=== PATIENT | male | born 1955 | race Caucasian/White ===

== ENCOUNTER 2018-06-30 08:17 | Emergency (ER) | payer MEDICAID ==
[~2018-06-30] VITALS: Ht 182.9 cm; Wt 138.5 kg
[2018-06-30 09:23] LABS: BASOPHILS # (AUTO) 0.03 x10^3/uL (0-0.1); BASOPHILS % (AUTO) 1 % (0-1); EOSINOPHILS # (AUTO) 0.12 x10^3/uL (0-0.4); EOSINOPHILS % (AUTO) 2 % (1-7); LYMPHOCYTES # (AUTO) 1.06 x10^3/uL (1-3.4); LYMPHOCYTES % (AUTO) 18 % (22-44); MD NO; MEAN CORPUSCULAR HEMOGLOBIN 29.1 pg (27.5-34.5); MEAN CORPUSCULAR HGB CONC 33.1 g/dL (33.2-36.2); MEAN CORPUSCULAR VOLUME 87.9 fL (81-97); MEAN PLATELET VOLUME 8.5 fL (7.4-10.4); MONOCYTES # (AUTO) 0.28 x10^3/uL (0.2-0.8); MONOCYTES % (AUTO) 5 % (2-9); NEUTROPHILS # (AUTO) 4.32 x10^3/uL (1.8-6.8); NEUTROPHILS % (AUTO) 74 % (42-75); PLATELET COUNT 246 x10^3/uL (130-400); RED BLOOD COUNT 5.18 x10^6/uL (4.38-5.82); RED CELL DISTRIBUTION WIDTH 14.2 % (9.4-14.8)
[2018-06-30 09:35] LABS: ANION GAP 9 mmol/L (5-15); CALCIUM 8.4 mg/dL (8.5-10.1); CHLORIDE 111 mmol/L (98-107); CREATININE 1.11 mg/dL (0.7-1.3)
[2018-06-30 09:36] LABS: ALBUMIN 3.1 g/dL (3.4-5.0)
[2018-06-30 09:39] LABS: TROPONIN I < 0.015 ng/mL (0.000-0.045)
[2018-06-30] MEDS ORDERED: OMNIPAQUE 350 MG/ML, 150 ML BOTTLE ONE (11:48)
[2018-06-30 12:49] VITALS: BP 132/91
== END 2018-06-30 12:51 | disposition home or self-care (01) ==
LOC: ED 10:00
DX: R06.00 Dyspnea, unspecified (principal); F17.200 Nicotine dependence, unspecified, uncomplicated
CPT/HCPCS: 36415; 71046; 71275; 80048; 82040; 83880; 84484; 85025; 85379; 93005; 99284; Q9967

== ENCOUNTER 2018-07-27 12:02 | Emergency (ER) | payer MEDICAID ==
[~2018-07-27] VITALS: Ht 182.9 cm; Wt 139.8 kg
[2018-07-27 13:00] LABS: BASOPHILS # (AUTO) 0.04 x10^3/uL (0-0.1); BASOPHILS % (AUTO) 1 % (0-1); EOSINOPHILS % (AUTO) 4 % (1-7); LYMPHOCYTES # (AUTO) 1.52 x10^3/uL (1-3.4); LYMPHOCYTES % (AUTO) 28 % (22-44); MD NO; MEAN CORPUSCULAR HEMOGLOBIN 29.4 pg (27.5-34.5); MEAN CORPUSCULAR HGB CONC 33.5 g/dL (33.2-36.2); MEAN CORPUSCULAR VOLUME 87.6 fL (81-97); MEAN PLATELET VOLUME 8.6 fL (7.4-10.4); MONOCYTES # (AUTO) 0.33 x10^3/uL (0.2-0.8); MONOCYTES % (AUTO) 6 % (2-9); NEUTROPHILS # (AUTO) 3.36 x10^3/uL (1.8-6.8); NEUTROPHILS % (AUTO) 62 % (42-75); PLATELET COUNT 234 x10^3/uL (130-400); RED BLOOD COUNT 5.43 x10^6/uL (4.38-5.82); RED CELL DISTRIBUTION WIDTH 14.2 % (9.4-14.8)
[2018-07-27 13:11] LABS: ALANINE AMINOTRANSFERASE 31 U/L (12-78); ALBUMIN 3.3 g/dL (3.4-5.0); ANION GAP 6 mmol/L (5-15); CALCIUM 8.5 mg/dL (8.5-10.1); CHLORIDE 110 mmol/L (98-107); CREATININE 1.09 mg/dL (0.7-1.3)
[2018-07-27 13:16] LABS: ALKALINE PHOSPHATASE 105 U/L (45-117); BILIRUBIN,TOTAL 0.4 mg/dL (0.2-1.0); TOTAL PROTEIN 7.2 g/dL (6.4-8.2); TROPONIN I < 0.015 ng/mL (0.000-0.045)
--- NOTE | 2018-07-27 14:45 | NUR ---
DIRECTOR ORACLE: TO ROOM FROM LOBBY
[2018-07-27 14:51] VITALS: BP 153/97
--- NOTE | 2018-07-27 14:51 | NUR ---
pt upright on gurney awake & calm, responds approp to staff, NAD & able to converse comfortably, comfort measures provided, call light within reach. cardiac, NIBP & SpO2 monitors in place, pt changed into gown.
--- NOTE | 2018-07-27 14:55 | NUR ---
ERP at BS
--- NOTE | 2018-07-27 15:26 | NUR ---
Patient given discharge instructions and Rx, they have confirmed that they understand the instructions. Patient ambulatory with steady gait.
== END 2018-07-27 15:27 | disposition home or self-care (01) ==
LOC: ED 15:20
DX: J15.9 Unspecified bacterial pneumonia (principal); F17.200 Nicotine dependence, unspecified, uncomplicated
CPT/HCPCS: 36415; 71045; 80053; 83880; 84484; 85025; 93005; 99284

== ENCOUNTER 2019-10-24 15:05 | Emergency (ER) | payer MEDICAID ==
[~2019-10-24] VITALS: Ht 188 cm; Wt 127.3 kg
[2019-10-24] MEDS ORDERED: KETOROLAC 30 MG/1 ML ONE (15:20)
[2019-10-24] MEDS ORDERED: HYDROmorphone 1 MG/ML, 1ML INJ ONE (15:21)
[2019-10-24] MEDS ORDERED: ONDANSETRON 2MG/ML, 2ML ONE (15:22)
[2019-10-24 15:27] LABS: BASOPHILS % (AUTO) 0 % (0-1); EOSINOPHILS % (AUTO) 2 % (1-7); LYMPHOCYTES # (AUTO) 0.89 x10^3/uL (1-3.4); LYMPHOCYTES % (AUTO) 13 % (22-44); MD NO; MEAN CORPUSCULAR HEMOGLOBIN 29.5 pg (27.5-34.5); MEAN CORPUSCULAR HGB CONC 33.5 g/dL (33.2-36.2); MEAN PLATELET VOLUME 7.9 fL (7.4-10.4); MONOCYTES # (AUTO) 0.22 x10^3/uL (0.2-0.8); MONOCYTES % (AUTO) 3 % (2-9); NEUTROPHILS % (AUTO) 82 % (42-75); PLATELET COUNT 212 x10^3/uL (130-400); RED BLOOD COUNT 5.17 x10^6/uL (4.38-5.82); RED CELL DISTRIBUTION WIDTH 14.8 % (9.4-14.8)
[2019-10-24] MEDS ORDERED: HYDROmorphone 2 MG/ML, 1ML IVPush PRN (15:30)
[2019-10-24] MEDS ORDERED: KETOROLAC 30 MG/1 ML IVPush ONE (15:30)
[2019-10-24] MEDS ORDERED: ONDANSETRON 2MG/ML, 2ML IVPush ONE (15:30)
--- NOTE | 2019-10-24 15:37 | NUR ---
PT TO ROOM 5 PER [facility]. PT CALLED DUE TO INCREASED PAIN IN RIGHT FLANK, ABDOMEN AND GROIN. PT UNABLE TO SIT STILL, ROCKING ON CART. GIVEN 100MCG FENTANYL BY [facility] WITH NO RELIEF. RN ADMINSITERED IV MEDICATIONS, UNABLE TO OBTAIN BLOOD FROM IV START FROM FIELD. PT TO CT. PT ON OXYGEN DUE LOWER SATS WHILE ON PAIN MEDICATION.
[2019-10-24 15:38] LABS: ALBUMIN 3.2 g/dL (3.4-5.0); ANION GAP 7 mmol/L (5-15); CALCIUM 8.8 mg/dL (8.5-10.1); CHLORIDE 112 mmol/L (98-107)
--- NOTE | 2019-10-24 16:04 | NUR ---
PT BACK FROM CT, STILL MOANING ON CART. RN IN TO ROOM, INSTRUCTED ON NEED FOR UA. PT ABLE TO STAND UP NEXT TO BED AND OTAINS URINE. PT LYING BACK IN BED. WILL CONTINUE TO WORK.
[2019-10-24 16:22] LABS: MICROSCOPIC NOT IND
[2019-10-24 16:31] LABS: CULTURE INDICATED? NO
--- NOTE | 2019-10-24 16:35 | NUR ---
PT RESTING IN BED SILENTLY AT THIS TIME.
--- NOTE | 2019-10-24 17:34 | NUR ---
RN IN TO DISCHARGE PATIENT. PT UPSETT THAT HE IS NOT GETTING ANY MORE MEDICATIONS. PT GIVEN PRESCSRIPTION FOR IBUPROFEN, ZOFRAN AND NORCO. RN ATTEMPTED TO TEACH PATIENT ABOUT MEDICATIONS, PT GETS ANGRY THAT HE IS GOING HOME, SITS UP AND PULLS HIS IV OUT AND STOMPS OUT OF ED.
[2019-10-24 17:38] VITALS: BP 164/55
== END 2019-10-24 17:41 | disposition home or self-care (01) ==
LOC: ED 17:17
DX: N13.2 Hydronephrosis with renal and ureteral calculous obstruction (principal); R10.9 Unspecified abdominal pain; I10 Essential (primary) hypertension; E11.9 Type 2 diabetes mellitus without complications; F17.200 Nicotine dependence, unspecified, uncomplicated
CPT/HCPCS: 36415; 74176; 80048; 81003; 82040; 85025; 96374; 96375; 99284; J1170; J1885; J2405